=== PATIENT | female | born 1990 | race Caucasian/White ===

== ENCOUNTER → 2023-02-22 | Outpatient (CLI) | payer OTHER ==
--- NOTE | 2023-02-25 09:29 | CT ---
EXAMINATION TYPE: CT abdomen pelvis wo/w con DATE OF EXAM: 02/22/2023 COMPARISON: Ultrasound 02/05/2023 HISTORY: Lower pelvic pain x [address] DLP: 3077.1 mGycm Automated exposure control for dose reduction was used. CONTRAST: CT scan of the abdomen pelvis is performed without and with IV Contrast, patient injected with 100 cc mL of Isovue 300. FINDINGS- LUNG BASES- No significant abnormality is appreciated. LIVER/GB- low-attenuation liver compatible with hepatic steatosis. PANCREAS- No gross abnormality is seen. SPLEEN- No gross abnormality is seen. ADRENALS- No gross abnormality is seen. KIDNEYS/BLADDER- no hydronephrosis nephrolithiasis or renal mass. BOWEL- nonspecific LYMPH NODES- No greater than 1cm abdominal or pelvic lymph nodes are appreciated. OSSEOUS STRUCTURES- degenerative changes L5-S1 OTHER- endometrium is prominent. Ovaries are prominent bilaterally greater on the left with a 1.8 cm enhancing lesion in the left ovary. Small fat-containing periumbilical hernia. IMPRESSION- 1. There is a 1.8 cm lesion in the left ovary possibly related to an involuting cyst. Recommend repe at pelvic ultrasound if there is pelvic pain. Correlate with beta hCG. 2. Hepatic steatosis.
== END | disposition home or self-care (01) ==
LOC: RADCTMAIN 16:48
PROVIDERS: ATTEND Family Medicine
DX: K76.0 Fatty (change of) liver, not elsewhere classified (principal); N83.8 Other noninflammatory disorders of ovary, fallopian tube and broad ligament; R10.814 Left lower quadrant abdominal tenderness
CPT/HCPCS: 74178; Q9967